=== PATIENT | female | born 1985 | race Hispanic/Latino ===

== ENCOUNTER → 2021-02-28 | Outpatient (CLI) | payer OTHER | END | disposition home or self-care (01) | LOC: RAH 10:05 | PROVIDERS: ATTEND Nurse Practitioner Family | DX: K76.0 Fatty (change of) liver, not elsewhere classified (principal); R19.00 Intra-abdominal and pelvic swelling, mass and lump, unspecified site | CPT/HCPCS: 76700 ==

== ENCOUNTER → 2021-03-04 | Outpatient (CLI) | payer OTHER ==
[~2021-03-04] MED LIST: IOHEXOL-350 75 ML VIAL IV ONE
== END | disposition home or self-care (01) ==
LOC: RAH 11:22
PROVIDERS: ATTEND Nurse Practitioner Family
DX: K57.30 Diverticulosis of large intestine without perforation or abscess without bleeding (principal); R19.00 Intra-abdominal and pelvic swelling, mass and lump, unspecified site
CPT/HCPCS: 74178; Q9967

== ENCOUNTER 2022-06-30 15:14 | Emergency (ER) | payer OTHER ==
[~2022-06-30] VITALS: Ht 160 cm; Wt 70.3 kg
[2022-06-30 15:34] VITALS: BP 142/79
[2022-06-30] MEDS ORDERED: IBUPROFEN 600 MG TABLET PO ONE (16:00)
== END 2022-06-30 16:35 | disposition home or self-care (01) ==
LOC: EDH 15:14
DX: S63.502A Unspecified sprain of left wrist, initial encounter (principal); S60.222A Contusion of left hand, initial encounter; W01.0XXA Fall on same level from slipping, tripping and stumbling without subsequent striking against object, initial encounter; Y93.89 Activity, other specified; Y92.481 Parking lot as the place of occurrence of the external cause; Y99.8 Other external cause status
CPT/HCPCS: 73100; 73130

== ENCOUNTER → 2025-05-03 | Outpatient (CLI) | payer OTHER ==
--- NOTE | 2025-05-03 14:27 | HMCIMG ---
DIGITAL bilateral DIAGNOSTIC MAMMOGRAM Technique: The digital mammographic examination of both breasts in craniocaudal, mediolateral oblique views along with CAD was obtained. History: This is a 40 years year-old female for diagnostic mammogram. Patient has maternal aunt and maternal grandmother family history of breast cancer. Patient has no complaint Reference:Baseline mammogram. Breast composition: Breast composition C: The breasts are heterogeneously dense, which may obscure small masses. Finding: The digital mammographic examination of both breasts in craniocaudal and mediolateral oblique view along with CAD demonstrates to be moderately heterogeneously dense with nodular changes.. There is no evidence of any dendritic mass, cluster microcalcification or architectural distortion. The retromammary fat appears to be normal. IMPRESSION: Due to moderately heterogeneously dense breast with complaining of breast pain I would recommend bilateral breast sonogram.. FINAL ASSESSMENT: ACR: BI-RAD -0. Incomplete: need additional imaging evaluation. NOTE: IF A WORK-UP OF THIS PATIENT LEADS TO A BIOPSY, PLEASE FORWARD A COPY OF THE PATHOLOGY REPORT TO OUR OFFICE REQUIRED BY [facility] E[facility]ECT[facility] FEBRUARY 22, 1994. A NEGATIVE MAMMOGRAM SHOULD NOT PRECLUDE BIOPSY OF A CLINICALLY PALPABLE SUSPICIOUS MASS, 10% OF BREAST CANCERS ARE MAMMOGRAPHICALLY OCCULT. THIS MAMMOGRAPHY FACILITY IS FULLY ACCREDITED BY THE [employer]OD AND [employer]UG [employer]MIN[employer]RATION (FDA). THANK YOU FOR THIS REFERRAL.
== END | disposition home or self-care (01) ==
LOC: RAH 10:47
PROVIDERS: ATTEND Family Medicine
DX: N64.4 Mastodynia (principal); R92.333 Mammographic heterogeneous density, bilateral breasts; Z80.3 Family history of malignant neoplasm of breast
CPT/HCPCS: 77066